=== PATIENT | female | born 2005 | race Caucasian/White ===

== ENCOUNTER 2024-06-23 17:32 | Emergency (ER) | payer SELFPAY ==
--- NOTE | 2024-06-23 17:50 | ED_ITS ---
HPI - Female Genitourinary General Chief complaint: Vaginal Bleeding Stated complaint: Abnormal Bleeding Time Seen by Provider: 06/23/24 17:33 Source: patient Mode of arrival: ambulatory Limitations: no limitations History of Present Illness HPI Narrative: Marichuy is a 18 year old female patient presenting to the clinic today with c/o heavy vaginal bleeding x 2 weeks. She reports 2 weeks ago her OBGYN Dr. Whitfiled from [facility] removed her IUD and she has been having heavy bleeding since. Has been having heavy bleeding with clots- going through a super tampon and period pad every 2 hours. Is also reporting fatigue, low back pain, lightheadedness, and abdomen cramping. Denies any chest pain or shortness of breath. Denies having any syncopal episodes. Has not had sexual intercourse since the IUD was removed. Denies any urinary symptoms. Last BM was yesterday and normal. Prior to IUD being removed patient was not having periods with the IUD in place. Patient was told to go to the ER by her Obgyn provider. Related Data Home Medications ?Medication ?Instructions ?Recorded ?Confirmed ?Last Taken ?Type bupropion HCl 300 mg 24 hr tablet, mg PO 06/23/24 Unknown History extended release Allergies Allergy/AdvReac Type Severity Reaction Status Date / Time No Known Allergies Allergy Verified 06/23/24 17:45 Review of Systems Review of Systems: Pertinent positives per HPI. Patient denies any fever, chills, rash, headache, visual changes, cough, runny nose, sore throat, shortness of breath, chest pain, palpitations, nausea, vomiting, diarrhea, constipation, or any urinary issues. PMFSH Comments At the time of my signature, I reviewed and agree with the nursing past medical, surgical, social, and family history. There is no relevant family history pertinent to the patient complaint. Exam Narrative: General: Well-developed, well nourished, in no apparent distress. Head: Normocephalic, atraumatic. Cardio: Regular rate and rhythm, s1 and s2 normal, no murmur appreciated. Resp: Clear to auscultation bilaterally, no rhonchi, rales, wheezing or rubs. Abdomen: Soft, pliable, bowel sounds present in all quadrants, mild tender to palpation over lower abdomen/pelvis, no organomegly, no CVAT tenderness. : Deferred Course Course Emergency Course: Portions of this record may have been created with voice recognition software. Level of Care: Express Care Visit Vital Signs Vital signs: Vital signs reviewed MDM - Female Genitourinary MDM Narrative Medical decision making narrative: At the time of visit patient is resting comfortably on the exam table. Patient appears to be nontoxic. Plan: Patient is having heavy vaginal bleeding x 2 weeks with associated fatigue, lightheadedness, low back pain, and abdomen cramping post IUD removal. Heart rate was 105 but other vitals are normal. Recommend transfer to the ED for further evaluation. Patient would like to be transferred to [facility]. Called and spoke with Dr. Villanueva and report was given for continuity of care. Differential Diagnosis Differential diagnosis: Likely dysmenorrhea and other (menorrhagia) Discharge Plan Discharge Clinical Impression: Menorrhagia Qualifiers: Menorrhagia type: with irregular cycle Qualified Code(s): N92.1 - Excessive and frequent menstruation with irregular cycle Patient Disposition: Acute Care Hospital Condition: Stable Patient Language: Portuguese Prescriptions: No Action bupropion HCl 300 mg tablet extended release 24 hr PO Follow-up/Referrals: PHYSICIAN,AQUATICS COORDINATOR [Primary Care Provider] - Time of Disposition: 17:57 Quality NIHSS Nursing Documentation ED NIHSS nursing documentation: reviewed/agree
[2024-06-23 17:54] VITALS: BP 159/98; PULSE 105; RESP 16; TEMP 36.8; O2SAT 99
== END 2024-06-23 18:05 | disposition short-term general hospital (02) ==
PROVIDERS: Emergency Provider Nurse Practitioner Family
DX: N92.0 Excessive and frequent menstruation with regular cycle (principal)
CPT/HCPCS: 99212; G0463

== ENCOUNTER 2024-06-23 18:31 | Emergency (ER) | payer SELFPAY ==
--- OUTSIDE RECORDS SUMMARY | 2024-06-23 18:33 | XMS_ITS | Clinical Summary ---
Author Organization [facility] at the Medical Office Building Address [address] [place] [address] Care Team Providers Care Emotionally Impaired Teacher Name Role Phone Eva Roca MD Primary Care Provider Allergies No known active allergies Medications levonorgestreL (KYLEENA) IUD 1 each by intrauterine route once Active escitalopram (LEXAPRO) 20 mg tablet Take 1 tablet (20 mg total) by mouth daily Active buPROPion XL (WELLBUTRIN XL) 300 mg 24 hr tablet Take 1 tablet (300 mg total) by mouth every morning Active buPROPion XL (WELLBUTRIN XL) 150 mg 24 hr tablet Take 1 tablet (150 mg total) by mouth every morning 025 Discontin ued(Thera py completed ) Active Problems No known active problems Encounters Date Type Department Care Team Description 06/09/2024 12:15 PM MANUFACTURING PRODUCTION TECHNICIAN Office Visit [facility] Obstetrical Gynecology [address] [place] [address] [place] [phone] Denia Adan MD Encounter for IUD removal (Primary Dx); Depression, unspecified depression type; Encounter for other general counseling or advice on contraception from Last 3 Months Surgical History Surgery Date Site/Laterality Comments WISDOM TOOTH EXTRACTION TONSILLECTOMY Family History Medical History Relation Name Comments No Known Problems Father No Known Problems Mother Breast cancer Neg Hx Colon cancer Neg Hx Ovarian cancer Neg Hx Uterine cancer Neg Hx Relation Name Status Comments Father Alive Mother Alive Social History Tobacco Use Types Packs/Day Years Used Date Smoking Tobacco: Never Tobacco Cessation:Counseling Given: Not Answered Comments No Sex and Gender Information Value Date Recorded Sex Assigned at Not on file Legal Sex Female 11:02 AM CDT Gender Identity Female 01/27/2023 2:02 PM CDT Sexual Orientation Straight 01/27/2023 2: 02 PM CDT Obstetrics History Para Term AB IAB SAB Ectopic Multiple Livin g Live Births 0 0 0 0 0 0 0 0 0 0 0 Last Filed Vital Signs Vital Sign Reading Time Taken Comments Blood Pressure 130/80 06/09/2024 11:50 AM MANUFACTURING PRODUCTION TECHNICIAN Pulse - - Temperature - - Respiratory Rate - - Oxygen Saturation - - Inhaled Oxygen Concentration - - Weight 87.1 kg (192 lb) 06/09/2024 11:50 AM MANUFACTURING PRODUCTION TECHNICIAN Height 165.1 cm (5' 5 ) 06/09/2024 11:50 AM MANUFACTURING PRODUCTION TECHNICIAN Body Mass Index 31.95 06/09/2024 11:50 AM MANUFACTURING PRODUCTION TECHNICIAN Plan of Treatment Health Maintenance Due Date Last Done Comments Depression Screening 2003 Hepatitis C Screening 2003 Meningococcal B Vaccine (2 o f 2 - Bexsero SCDM 2-dose series) 07/17/2021 01/16/2021 Covid-19 Vaccine (2023-2 5 season) 2023 04/10/2021, 03/07/2021 Influenza Vaccine (#1) 2023 8, 03/22/2007, 02/04/2005, Additional history exists DTaP/Tdap/Td Vaccine (7 - Td or Tdap) 11/14/2024 11/14/2014, 10/30/2008, 10/30/2008, Additional history exists Chlamydia and Gonorrhea (GC/ CT) Screening 12/07/2024 12/08/2023, 01/26/2023 Regular Well Visit/Exam 18-64 12/07/2024 12/08/2023 Pneumococcal vaccine <65 Completed 005, 02/15/2004, 2003, Additional history exists Hepatitis B Screening Completed 10/30/2008 , 12/06/2004, 02/15/2004, Additional history exists Varicella Vaccines Completed 10/30/2008, 0 10/30/2008, 08/21/2004, Additional history exists HPV Vaccines Completed 09/27/2015, 11/14/2014 Meningococcal Vaccine Completed 01/16/2021, 015 Procedures Procedure Name Priority Date/Time Associated Diagnosis Comments SD REMOVAL INTRAUTERINE DEVICE IUD Routine 06/09/2024 12:15 PM MANUFACTURING PRODUCTION TECHNICIAN Encounter for IUD removal N. GONORRHOEAE/C. TRACHOMATIS AMPLIFICATION Routine 12/08/2023 1:37 PM CDT Well woman exam from Last 3 Months or Most Recently Relevant to Health Maintenance Results * SD REMOVAL INTRAUTERINE DEVICE IUD (06/09/2024 12:15 PM MANUFACTURING PRODUCTION TECHNICIAN) Narrative Denia Adan MD - 06/09/2024 12:15 PM MANUFACTURING PRODUCTION TECHNICIAN Denia Adan MD 06/09/2024 12:12 PM IUD - Insertion/removal/reinsertion procedure. Performed by: Denia Adan MD Authorized by: Denia Adan MD Consent Given by: Patient Timeout: prior to procedure the correct patient, procedure, and site was verified Verbal consent obtained: Yes Written consent obtained: Yes Risks, alternatives, and patient questions discussed: Yes Removal: Removal with/due to: Other complications due to genitourinary device, implant, and graft Post-procedure: Patient tolerance: Patient tolerated the procedure well with no immediate complications Comments: Speculum placed in the vagina. IUD strings visualized and grasped with ring forcep. Downward pressure was applied and the device was removed without difficulty. Device confirmed to be intact. No bleeding or complications. Denia Adan MD IN CLINIC/BEDSIDE ORDERABL ES Final Result * N. gonorrhoeae/C. trachomatis Amplification Vaginal (12/08/2023 1:37 PM CDT) C. trachomatis Not Detected [facility] Comment:Testing performed by : [facility], [address], [place]., [address] N. gonorrhoeae Not Detected [facility] Comment: Interpretive Data This assay detects Chlamydia trachomatis and Neisseria gonorrhoeae by nucleic acid amplification testing (NAAT). This assay has been cleared by the [place] Food and Drug administration. The performance characteristics of this test have been verified by the [facility] Molecular Infectious Disease laboratory. The performance characteristics of this test have not been evaluated in individuals less than 14 years of age. Current Interpretive Data was last revised on 2023. Testing performed by: [facility], [address] [place]., [address] Vaginal 12/08/2023 1:37 PM CDT 12/08/2023 9:13 PM CDT us Denia Adan MD LAB MICROBIOLOGY - GENERAL ORDERABLES Final Result [facility] [address] [facility] [place] [address] [facility] from Last 3 Months or Most Recently Relevant to Health Maintenance Insurance [employer] [place] Care Teams Emotionally Impaired Teacher Relationship Specialty Start Date End Date Eva Roca MD [address] [place] [phone] PCP - General Family Practice 12/10/22
--- OUTSIDE RECORDS SUMMARY | 2024-06-23 18:33 | XMS_ITS | Clinical Summary ---
Author Organization [facility] Address [address] [place] [id number] Care Team Providers Care Rolled Gold Plater Name Role Phone Eva Roca MD Primary Care Provider [phone] Source Comments This disclosure is being made pursuant to the [employer] program and maynot contain all information available regarding this patient.[facility] Allergies No known active allergies Medications levonorgestrel (Kyleena) 19.5 MG IUD IUD 1 each by Intrauterine route every five (5) years. Active escitalopram (LEXAPRO) 20 MG tablet Take 1 (one) tablet by mouth daily. 90 tablet 2 4 Active buPROPion XL (Wellbutrin XL) 300 MG 24 hr tablet Take 1 (one) tablet (300 mg total) by mouth every morning. 30 tablet 2 5 Active Active Problems No known active problems Encounters Date Type Department Care Team Description 05/16/2024 1:20 PM CITY MAIL CARRIER Telemedicine [facility] [address] [place] [phone] Eva Roca MD Anxiety (Primary Dx); Depressive disorder 05/15/2024 Travel 04/15/2024 8:00 AM CITY MAIL CARRIER Office Visit [facility] [address] [place] [phone] Eva Roca MD Depressive disorder (Primary Dx); Anxiety 04/15/2024 Travel 04/12/2024 Clinical Support [facility] [address] [place] [address] Caprice Scott Tech Myopia of both eyes (Primary Dx) from Last 3 Months Immunizations Immunization Administration Dates Next Due COVID-19 (PFIZER-purple cap) MRNA ages 12+ 04/10/2021,03/07/2021 DTaP (Infanrix) DTaP 12/06/2004 DTaP / IPV 10/30/2008 DTaP-Hepatitis B-Polio (Pedi arix) IOAF-IdqX-ZPH 02/15/2004,2003,2003 Hepatitis A pediatric 10/30/2008,01/20/2008 Human Papillomavirus (Gardasil 4) HPV4 5 Human Papillomavirus (Gardas il 9) 9vHPV 09/27/2015 Influenza Split 01/20/2008, 7,02/04/2005,02/14 LIVE Yuzjkqe-Abuwp-Hxgqatz ( M-M-R II) MMR 10/30/2008,08/21/2004 LIVE Varicella (Varivax) SELMA 10/30/2008,08/22/19 05 Meningococcal B (Bexsero) MenB-4C 01/16/2021 Meningococcal Conjugate (Men actra) MCV4 MenACWY-D 11/14/2014 Meningococcal Conjugate (Men veo) MCV4 MenACWY-CRM 01/16/2021 Pneumococcal Conjugate-7 (Pr evnar 7) PCV7 08/21/2004,02/15/2004,2003,10/11 Tdap 11/14/2014 haemophilus Influenzae type b (PedvaxHIB) Hib PRP-OMP 12/06/2004,2003,2003 Family History Medical History Relation Name Comments No Known Problems Father Hypertension Maternal Grandfather Hypertension Maternal Grandmother Migraines Mother Other Other No significant family history - All Family: Noted on 2007-09-17 16:23:56 Arthritis Paternal Grandfather Diabetes Paternal Grandfather Relation Name Status Comments Father Maternal Grandfather Maternal Grandmother Mother Other Paternal Grandfather Social History Tobacco Use Types Packs/Day Years Used Date Smoking Tobacco: Never Smokeless Tobacco: Never Tobacco Cessation:Counseling Given: Not Answered Alcohol Use Standard Drinks/Week Comments Never 0 (1 standard drink = 0.6 oz pure alcohol) Alcoholic Drinks/day: ALCOHOL USE: NON-DRINKER PHQ-2 Answer Date Recorded PHQ-2 Total Score 6 04/15/2024 Comments No Sex and Gender Information Value Date Recorded Sex Assigned at Not on file Legal Sex Female 6:46 PM CDT Gender Identity Female 09/09/2023 6:07 PM CDT Sexual Orientation Straight 09/09/2023 6: 07 PM CDT Last Filed Vital Signs Vital Sign Reading Time Taken Comments Blood Pressure 124/78 04/15/2024 7:59 AM CITY MAIL CARRIER Pulse 106 04/15/2024 7:59 AM CITY MAIL CARRIER Temperature 36.8 C (98.3 F) 07/03/2023 6:11 PM CDT Respiratory Rate 22 07/03/2023 6:11 PM CDT Oxygen Saturation 96% 04/15/2024 7:59 AM CITY MAIL CARRIER Inhaled Oxygen Concentration - - Weight 88.9 kg (196 lb) 04/15/2024 7:59 AM CITY MAIL CARRIER Height 165.1 cm (5' 5 ) 09/17/2023 9:33 AM CDT Body Mass Index 32.62 09/17/2023 9:33 AM CDT Plan of Treatment Upcoming Encounters Date Type Department Care Team (Late st Contact Info) Description 09/15/2024 10:00 AM CDT Appointment [facility] [address] [place] [address] Carmelina Cordoba M, OD [address] [place] [phone] Health Maintenance Due Date Last Done Comments Lab-Hepatitis C Screening 2003 Chlamydia Screening 2019 Meningococcal B Vaccine (2 of 2 - Bexsero SCDM 2-dose series) 07/17/2021 01/16/2021 Lab-Cholesterol Screening 09/24/2022 09/24/2017 COVID-19 Vaccine ( season) 2023 04/10/2021, 03/07/2021 Influenza Vaccine (#1) 2024 8, 03/22/2007, 02/04/2005, Additional history exists Postponed from 12/06/2023 (Patient Declined) Tetanus/Pertussis Vaccine Teen/Adult (7 - Td or Tdap) 11/14/2024 11/14/2014, 10/30/2008, 12/06/2004, Additional history exists Annual Wellness Visit 12/07/2024 12/08/2023 , 09/17/2023, 08/06/2022 Zoster (Shingles) Vaccine 50+ (1 of 2) 08/10/2053 RSV Adult (1 - 1-dose 75+ series) 08/10/2078 Hepatitis B Vaccine Completed 02/15/2004, 2003, 2003 Pneumococcal Vaccines 0-49 yo Aged Out 08/21/2004, 02/15/2004, 2003, Additional history exists No longer eligible based on patient's age to complete this topic HIB Vaccine Completed 12/06/2004, 12/05, 2003 Hepatitis A Vaccine Completed 10/30/2008, 8 IPV Vaccine Completed 10/30/2008, 02/04, 2003, Additional history exists HPV Vaccine (F:9-26YO,M: 9-22) Completed 09/27/2015, 11/14/2014 Meningococcal Conjugate Vaccine Completed 01/16/2021, 11/14/2014 RSV < 20 Months Aged Out No longer el igible based on patient's age to complete this topic Procedures Procedure Name Priority Date/Time Associated Diagnosis Comments LIPID PANEL Routine 09/24/2017 11:02 AM CDT Family history of hyperlipidemia from Last 3 Months or Most Recently Relevant to Health Maintenance Results * (ABNORMAL) Lipid panel (09/24/2017 11:02 AM CDT) Cholesterol 125 0 - 200 mg/dL [facility] Comment:Cholesterol preferre d <200 mg/dL. Clinical correlation is essential. Triglycerides 49 0 - 200 mg/dL [facility] HDL Cholesterol 55(L) >60 mg/dL [facility] LDL, Calculated 60.2 mg/dL [facility] Comment: <100 Optimal 100-129 Near Optimal/Above Optimal 130-159 Borderline High 160-189 High >or =190 Very High Cholesterol/HDL Ratio 2.3 [facility] Blood specimen (specimen) 09/24/2017 11:02 AM CDT 09/24/2017 11:28 AM CDT Comment:- Narrative [facility] - 09/24/2017 1:32 PM CDT PT NOT FASTING Testing performed at [facility], [address] [place] [address]. Sheltered Workshop Worker Efe Sorto MD us Noel Rivas MD LAB BLOOD ORDERABLES Final Re sult [facility] [address] [place] [address] [phone] from Last 3 Months or Most Recently Relevant to Health Maintenance Insurance [employer] Care Teams Rolled Gold Plater Relationship Specialty Start Date End Date Eva Roca MD [address] [place] [id number] PCP - General Family Medicine 09/11/22
--- OUTSIDE RECORDS SUMMARY | 2024-06-23 18:33 | XMS_ITS | Referral Summary ---
Author Organization [facility] at the Medical Office Building Address [address] [place] [address] Care Team Providers Care Financial Management Consultant Name Role Phone Eva Roca MD Primary Care Provider Encounters Date Type Department Care Team Description 06/09/2024 12:15 PM CHIEF INFORMATION OFFICER Office Visit [facility] Obstetrical Gynecology [address] [place] [address] [place] [phone] Denia Adan MD Encounter for IUD removal (Primary Dx); Depression, unspecified depression type; Encounter for other general counseling or advice on contraception from Last 3 Months Allergies No known active allergies Medications levonorgestreL [...] ) Active Problems No known active problems Social History Tobacco Use Types Packs/Day Years Used Date Smoking Tobacco: Never Tobacco Cessation:Counseling Given: Not Answered Comments No Sex and Gender Information Value Date Recorded Sex Assigned at Not on file Legal Sex Female 11:02 AM CDT Gender Identity Female 01/27/2023 2:02 PM CDT Sexual Orientation Straight 01/27/2023 2: 02 PM CDT Last Filed Vital Signs Vital Sign Reading Time Taken Comments Blood Pressure 130/80 06/09/2024 11:50 AM CHIEF INFORMATION OFFICER Pulse - - Temperature - - Respiratory Rate - - Oxygen Saturation - - Inhaled Oxygen Concentration - - Weight 87.1 kg (192 lb) 06/09/2024 11:50 AM CHIEF INFORMATION OFFICER Height 165.1 cm (5' 5 ) 06/09/2024 11:50 AM CHIEF INFORMATION OFFICER Body Mass Index 31.95 06/09/2024 11:50 AM CHIEF INFORMATION OFFICER Plan of Treatment Not on file Procedures Procedure Name Priority Date/Time Associated Diagnosis Comments OR REMOVAL INTRAUTERINE DEVICE IUD Routine 06/09/2024 12:15 PM CHIEF INFORMATION OFFICER Encounter for IUD removal N. GONORRHOEAE/C. TRACHOMATIS AMPLIFICATION Routine 12/08/2023 1:37 PM CDT Well woman exam from Last 3 Months or Most Recently Relevant to Health Maintenance Results * OR REMOVAL INTRAUTERINE DEVICE IUD (06/09/2024 12:15 PM CHIEF INFORMATION OFFICER) Narrative Denia Adan MD - 06/09/2024 12:15 PM CHIEF INFORMATION OFFICER Denia Adan MD 06/09/2024 12:12 PM IUD [...] 1:37 PM CDT) C. trachomatis Not Detected [facility] Comment:Testing performed by : [facility], [address] [place]., [address] N. gonorrhoeae Not Detected [facility] Comment: Interpretive Data This assay detects Chlamydia trachomatis and Neisseria gonorrhoeae by nucleic acid amplification testing (NAAT). This assay has been cleared by the [place] Food and Drug administration. The performance characteristics of this test have been verified by the [facility] Molecular Infectious Disease laboratory. The performance characteristics of this test have not been evaluated in individuals less than 14 years of age. Current Interpretive Data was last revised on 2023. Testing performed by: [facility], [address] [place]., [address] Vaginal 12/08/2023 1:37 PM CDT 12/08/2023 9:13 PM CDT Denia Adan MD LAB MICROBIOLOGY - GENERAL ORDERABLES Final Result [facility] [address] [facility] Department [place] [address] [facility] from Last 3 Months or Most Recently Relevant to Health Maintenance Insurance [facility] Care Teams Financial Management Consultant Relationship Specialty Start Date End Date Eva Roca MD [address] [place] [address] PCP - General Family Practice 12/10/22
[2024-06-23 18:55] VITALS: BP 147/91; PULSE 97; RESP 16; TEMP 37; O2SAT 100
--- NOTE | 2024-06-23 20:59 | PC.NURSE ---
Patient leaving-will follow up with PMD in the morning
--- OUTSIDE RECORDS SUMMARY | 2024-06-23 21:04 | XMS_ITS | Clinical Summary ---
Author Organization [email or web address] Address [address] [place] [id number] Care Team Providers Care Tinning Equipment Tender Name Role Phone Eva Roca MD Primary Care Provider [phone] Source Comments This disclosure is being made pursuant to the [employer] program and maynot contain all information available regarding this patient.[email or web address] Allergies No known active allergies Medications levonorgestrel [...] Department Care Team Description 05/16/2024 1:20 PM GRANITE BLOCK PAVER Telemedicine [facility] [address] [place] [phone] Eva Roca MD Anxiety (Primary Dx); Depressive disorder 05/15/2024 Travel 04/15/2024 8:00 AM GRANITE BLOCK PAVER Office Visit [facility] [address] [place] [phone] Eva Roca MD Depressive disorder (Primary Dx); Anxiety 04/15/2024 Travel 04/12/2024 Clinical Support [facility] [address] [place] [address] [employer] Myopia of both eyes (Primary Dx) from Last 3 Months Immunizations Immunization Administration Dates Next Due COVID-19 (PFIZER-purple cap) MRNA ages 12+ 04/10/2021,03/07/2021 DTaP (Infanrix) DTaP 12/06/2004 DTaP / IPV 10/30/2008 DTaP-Hepatitis B-Polio (Pedi arix) SMOU-MfgO-RSQ 02/15/2004,2003,2003 Hepatitis A pediatric 10/30/2008,01/20/2008 Human Papillomavirus (Gardasil 4) HPV4 5 Human Papillomavirus (Gardas il 9) 9vHPV 09/27/2015 Influenza Split 01/20/2008, 7,02/04/2005,02/14 LIVE Emyytck-Xrutm-Atmixrl ( M-M-R II) MMR 10/30/2008,08/21/2004 LIVE Varicella [...] Comments Blood Pressure 124/78 04/15/2024 7:59 AM GRANITE BLOCK PAVER Pulse 106 04/15/2024 7:59 AM GRANITE BLOCK PAVER Temperature 36.8 C (98.3 F) 07/03/2023 6:11 PM CDT Respiratory Rate 22 07/03/2023 6:11 PM CDT Oxygen Saturation 96% 04/15/2024 7:59 AM GRANITE BLOCK PAVER Inhaled Oxygen Concentration - - Weight 88.9 kg (196 lb) 04/15/2024 7:59 AM GRANITE BLOCK PAVER Height 165.1 cm (5' 5 ) 09/17/2023 9:33 AM CDT Body Mass Index 32.62 09/17/2023 9:33 AM CDT Plan of Treatment Upcoming Encounters Date Type Department Care Team (Late st Contact Info) Description 09/15/2024 10:00 AM CDT Appointment [facility] [address] [place] [address] Carmelina Cordoba M, OD [address] [place] [phone] Health Maintenance Due Date Last Done Comments [...] CDT) Cholesterol 125 0 - 200 mg/dL [facility] Comment:Cholesterol preferre d <200 mg/dL. Clinical correlation is essential. Triglycerides 49 0 - 200 mg/dL [facility] HDL Cholesterol 55(L) >60 mg/dL [facility] LDL, Calculated 60.2 mg/dL [facility] Comment: <100 Optimal 100-129 Near Optimal/Above Optimal 130-159 Borderline High 160-189 High >or =190 Very High Cholesterol/HDL Ratio 2.3 [facility] Blood specimen (specimen) 09/24/2017 11:02 AM CDT 09/24/2017 11:28 AM CDT Comment:- Narrative [facility] - 09/24/2017 1:32 PM CDT PT NOT FASTING Testing performed at [facility], [address] [place] [address]. Ceramic Tile Mechanic Efe Sorto MD us Noel Rivas MD LAB BLOOD ORDERABLES Final Re sult [facility] [address] [place] [address] [phone] from Last 3 Months or Most Recently Relevant to Health Maintenance Insurance [employer] Care Teams Tinning Equipment Tender Relationship Specialty Start Date End Date Eva Roca MD [address] [place] [id number] PCP - General Family Medicine 09/11/22
--- OUTSIDE RECORDS SUMMARY | 2024-06-23 21:05 | XMS_ITS | Referral Summary ---
Author Organization [facility] Address [address] [place] [address] Care Team Providers Care Agriculture Science Teacher Name Role Phone Eva Roca MD Primary Care Provider Encounters Date Type Department Care Team Description 06/09/2024 12:15 PM ENTRY LEVEL ASSISTANT MANAGER Office Visit [facility] Obstetrical Gynecology [address] [place] [address] [place] [phone] Denia Adan MD Encounter for IUD [...] Comments Blood Pressure 130/80 06/09/2024 11:50 AM ENTRY LEVEL ASSISTANT MANAGER Pulse - - Temperature - - Respiratory Rate - - Oxygen Saturation - - Inhaled Oxygen Concentration - - Weight 87.1 kg (192 lb) 06/09/2024 11:50 AM ENTRY LEVEL ASSISTANT MANAGER Height 165.1 cm (5' 5 ) 06/09/2024 11:50 AM ENTRY LEVEL ASSISTANT MANAGER Body Mass Index 31.95 06/09/2024 11:50 AM ENTRY LEVEL ASSISTANT MANAGER Plan of Treatment Not on file Procedures Procedure Name Priority Date/Time Associated Diagnosis Comments [place] REMOVAL INTRAUTERINE DEVICE IUD Routine 06/09/2024 12:15 PM ENTRY LEVEL ASSISTANT MANAGER Encounter for IUD removal N. GONORRHOEAE/C. TRACHOMATIS AMPLIFICATION Routine 12/08/2023 1:37 PM CDT Well woman exam from Last 3 Months or Most Recently Relevant to Health Maintenance Results * [place] REMOVAL INTRAUTERINE DEVICE IUD (06/09/2024 12:15 PM ENTRY LEVEL ASSISTANT MANAGER) Narrative Denia Adan MD - 06/09/2024 12:15 PM ENTRY LEVEL ASSISTANT MANAGER Denia Adan MD 06/09/2024 12:12 PM IUD [...] 1:37 PM CDT) C. trachomatis Not Detected [facility] Comment:Testing performed by : [facility], [address] [place]., [address] N. gonorrhoeae Not Detected [facility] Comment: Interpretive Data This assay detects Chlamydia trachomatis and Neisseria gonorrhoeae by nucleic acid amplification testing (NAAT). This assay has been cleared by the [place] Food and Drug administration. The performance characteristics of this test have been verified by the [facility] Molecular Infectious Disease laboratory. The performance characteristics of this test have not been evaluated in individuals less than 14 years of age. Current Interpretive Data was last revised on 2023. Testing performed by: [facility], [address] [place]., [address] Vaginal 12/08/2023 1:37 PM CDT 12/08/2023 9:13 PM CDT Denia Adan MD LAB MICROBIOLOGY - GENERAL ORDERABLES Final Result [facility] [id number] [facility] Department [place] [address] [facility] from Last 3 Months or Most Recently Relevant to Health Maintenance Insurance [facility] Care Teams Agriculture Science Teacher Relationship Specialty Start Date End Date Eva Roca MD [address] [place] [address] PCP - General Family Practice 12/10/22
--- OUTSIDE RECORDS SUMMARY | 2024-06-23 21:05 | XMS_ITS | Clinical Summary ---
Author Organization [facility] Address [address] [place] [address] Care Team Providers Care Fire Ranger Name Role Phone Eva Roca MD Primary [...] Department Care Team Description 06/09/2024 12:15 PM VP DESIGN Office Visit [facility] Obstetrical Gynecology [address] [place] [address] [place] [phone] Denia Adan MD Encounter for IUD [...] Comments Blood Pressure 130/80 06/09/2024 11:50 AM VP DESIGN Pulse - - Temperature - - Respiratory Rate - - Oxygen Saturation - - Inhaled Oxygen Concentration - - Weight 87.1 kg (192 lb) 06/09/2024 11:50 AM VP DESIGN Height 165.1 cm (5' 5 ) 06/09/2024 11:50 AM VP DESIGN Body Mass Index 31.95 06/09/2024 11:50 AM VP DESIGN Plan of Treatment Health Maintenance Due Date [...] Procedure Name Priority Date/Time Associated Diagnosis Comments [place] REMOVAL INTRAUTERINE DEVICE IUD Routine 06/09/2024 12:15 PM VP DESIGN Encounter for IUD removal N. GONORRHOEAE/C. TRACHOMATIS AMPLIFICATION Routine 12/08/2023 1:37 PM CDT Well woman exam from Last 3 Months or Most Recently Relevant to Health Maintenance Results * [place] REMOVAL INTRAUTERINE DEVICE IUD (06/09/2024 12:15 PM VP DESIGN) Narrative Denia Adan MD - 06/09/2024 12:15 PM VP DESIGN Denia Adan MD 06/09/2024 12:12 PM IUD [...] 1:37 PM CDT) C. trachomatis Not Detected [facility] Comment:Testing performed by : [facility], [address] [facility], [place]., [address] N. gonorrhoeae Not Detected [facility] Comment: Interpretive Data This assay detects Chlamydia trachomatis and Neisseria gonorrhoeae by nucleic acid amplification testing (NAAT). This assay has been cleared by the [place] Food and Drug administration. The performance characteristics of this test have been verified by the [facility] Molecular Infectious Disease laboratory. The performance characteristics of this test have not been evaluated in individuals less than 14 years of age. Current Interpretive Data was last revised on 2023. Testing performed by: [facility], [address] [place]., [address] Vaginal 12/08/2023 1:37 PM CDT 12/08/2023 9:13 PM CDT us Denia Adan MD LAB MICROBIOLOGY - GENERAL ORDERABLES Final Result [facility] [address] [facility] Department [place] [address] [facility] from Last 3 Months or Most Recently Relevant to Health Maintenance Insurance [employer] [place] Care Teams Fire Ranger Relationship Specialty Start Date End Date Eva Roca MD [address] [place] [id number] PCP - General Family Practice 12/10/22
== END 2024-06-23 23:54 | disposition left against medical advice (07) ==
DX: N93.9 Abnormal uterine and vaginal bleeding, unspecified (principal)
CPT/HCPCS: 99199